=== PATIENT | male | born 1995 | race Caucasian/White ===

== ENCOUNTER 2019-12-15 16:26 | Emergency (ER) | payer MEDICAID ==
[2019-12-15] MEDS ORDERED: Ketorolac 60 MG/2 ML SDV IM ONE (16:57)
[2019-12-15] MEDS ORDERED: Cyclobenzaprine 10 MG Tab PO ONE (16:57)
--- NOTE | 2019-12-15 17:25 | EDM.PDOC ---
ED HPI GENERAL MEDICAL PROBLEM - General Stated Complaint: RT RIB PAIN Time Seen by Provider: 12/15/19 16:35 Source of Information: Reports: Patient History Limitations: Reports: No Limitations - History of Present Illness INITIAL COMMENTS - FREE TEXT/NARRATIVE: Patient presented to the ED because of right rib pain when he woke upthis morning. The pain is shrp,6/10 and worse with breathing and movements. He took OTC tylenol without relief. there is no associated cough and cold,fever or chills.. Right rib Pain Score (Numeric/FACES): 8 - Related Data Allergies Allergy/AdvReac Type Severity Reaction Status Date / Time No Known Allergies Allergy Verified 12/15/19 17:25 Home Meds: Home Meds Cyclobenzaprine [Flexeril] 10 mg PO TID PRN #15 tab 12/15/19 [Rx] Ibuprofen [Motrin] 800 mg PO TID PRN #30 tablet 12/15/19 [Rx] ED ROS GENERAL - Review of Systems Review Of Systems: See Below Constitutional: Reports: No Symptoms HEENT: Reports: No Symptoms Respiratory: Reports: Shortness of Breath, Pleuritic Chest Pain Cardiovascular: Reports: No Symptoms Endocrine: Reports: No Symptoms GI/Abdominal: Reports: No Symptoms : Reports: No Symptoms Musculoskeletal: Reports: Muscle Pain Skin: Reports: No Symptoms Neurological: Reports: No Symptoms Psychiatric: Reports: No Symptoms ED EXAM, GENERAL - Physical Exam Exam: See Below Exam Limited By: No Limitations General Appearance: Alert, WD/WN, No Apparent Distress Nose: Normal Inspection, Normal Mucosa, No Blood Throat/Mouth: Normal Inspection, Normal Lips, Normal Teeth, Normal Gums, Normal Oropharynx Head: Atraumatic, Normocephalic Neck: Normal Inspection, Supple, Non-Tender, Full Range of Motion Respiratory/Chest: No Respiratory Distress, Lungs Clear, Normal Breath Sounds, No Accessory Muscle Use, Other (tenderness over the right rib area) Cardiovascular: Normal Peripheral Pulses, Regular Rate, Rhythm, No Edema, No Gallop, No JVD, No Rub GI/Abdominal: Normal Bowel Sounds, Soft, Non-Tender, No Organomegaly, No Distention, No Abnormal Bruit Back Exam: Normal Inspection, Full Range of Motion Extremities: Normal Inspection, Normal Range of Motion, Non-Tender, No Pedal Edema Neurological: Alert, Oriented, CN II-XII Intact Course - Vital Signs Text/Narrative:: chest and rib xray-neg flexeril 10 mg po x1 toradol 60 mg IM x`1 Last Recorded V/S: Last Vital Signs Temp 36.5 C 12/15/19 17:21 Pulse 85 12/15/19 17:45 Resp 20 12/15/19 17:45 BP 160/91 H 12/15/19 17:45 Pulse Ox 98 12/15/19 17:45 - Orders/Labs/Meds Orders: Active Orders 24 hr Category Date Time Status Ribs 2V w Chest Rt [CR] Stat Exams 12/15/19 16:57 Taken Meds: Medications Discontinued Medications Generic Name Dose Route Start Last Admin Trade Name Freq PRN Reason Stop Dose Admin Cyclobenzaprine HCl 10 mg 12/15/19 16:57 12/15/19 17:37 Flexeril PO 12/15/19 16:58 10 mg ONETIME ONE Administration Ketorolac Tromethamine 60 mg 12/15/19 16:57 12/15/19 17:37 Toradol IM 12/15/19 16:58 60 mg ONETIME ONE Administration Departure - Departure Time of Disposition: 17:20 Disposition: Home, Self-Care 01 Condition: Good Clinical Impression: Chest wall pain - Discharge Information Prescriptions: Cyclobenzaprine [Flexeril] 10 mg PO TID PRN #15 tab PRN Reason: Muscle Spasm Ibuprofen [Motrin] 800 mg PO TID PRN #30 tablet PRN Reason: Pain Instructions: Chest Wall Pain, [id number] Referrals: PCP,None [Primary Care Provider] - Forms: ED Department Discharge Additional Instructions: please read discharge instructions on chest wall pain take ibuprofen 800 mg with tylenol 1000 mg every 8 hours as needed for pain flexeril 10 mg every 8 hours as needed for spasms follow up as needed Sepsis Event Note - Focused Exam Date Exam was Performed: 12/16/19 Time Exam was Performed: 07:31 - My Orders Last 24 Hours: My Active Orders 12/15/19 16:57 Ribs 2V w Chest Rt [CR] Stat - Assessment/Plan Last 24 Hours: My Active Orders 12/15/19 16:57 Ribs 2V w Chest Rt [CR] Stat
--- NOTE | 2019-12-16 10:29 | CR ---
INDICATION: Lifting injury with right rib pain. RIGHT RIBS WITH CHEST: Two PA views of the chest 12/15/19 with an additional 3 views of the right ribs were obtained 12/15/19 - no comparisons. The heart appeared normal in size and shape, mediastinum was unremarkable. An active infiltrate, effusion, contusion, or pneumothorax was not identified. No displaced rib fracture or other definite bony abnormality was identified. There is evidence of exogenous obesity. IMPRESSION: 1. No acute process. 2. Exogenous obesity. MTDD
== END 2019-12-15 17:52 | disposition home or self-care (01) ==
LOC: FB.ED 16:26
DX: R07.89 Other chest pain (principal)
CPT/HCPCS: 71101-RT; 96372; 99283-25; A9270-GY; J1885

== ENCOUNTER 2020-12-22 13:15 | Emergency (ER) | payer MEDICAID ==
--- NOTE | 2020-12-22 13:40 | EDM.PDOC ---
ED HPI GENERAL MEDICAL PROBLEM - General Chief Complaint: Abdominal Pain Stated Complaint: ABD PAIN, right flank Time Seen by Provider: 12/22/20 13:25 Source of Information: Reports: Patient History Limitations: Reports: No Limitations - History of Present Illness INITIAL COMMENTS - FREE TEXT/NARRATIVE: Woke this am ( about noon ) with pain in the right flank .Pain has been per sistent with nausea , no vomiting has had persistent pain , localized non radiating , not relieve by anything States he has had BM yesterday , pain was not related to eating had Urinated yesterday was dark and this was darker has not had gallbladder of the appendix removed has nofever or chills Onset: Today Onset Date: 12/22/20 Duration: Hour(s): (2), Getting Worse Location: Reports: Abdomen Quality: Reports: Ache, Dull Severity: Moderate Improves with: Reports: Immobilization Worsens with: Reports: Movement Associated Symptoms: Reports: Diaphoresis, Loss of Appetite, Malaise Right Lower Abdominal Pain Score (Numeric/FACES): 9 - Related Data Allergies Allergy/AdvReac Type Severity Reaction Status Date / Time No Known Allergies Allergy Verified 12/15/19 17:25 Home Meds: Home Meds Ketorolac [Toradol] 10 mg PO Q6H PRN #15 tab 12/22/20 [Rx] Tamsulosin HCl [Flomax] 0.4 mg PO DAILY #30 cap.er.24h 12/22/20 [Rx] predniSONE 40 mg PO DAILY #5 tab 12/22/20 [Rx] Past Medical History HEENT History: Reports: Impaired Vision Endocrine/Metabolic History: Reports: Obesity/BMI 30+ - Past Surgical History Musculoskeletal Surgical History: Reports: Carpal Tunnel, Other (See Below) Other Musculoskeletal Surgeries/Procedures:: 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 Social & Family History - Caffeine Use Caffeine Use: Reports: Coffee, Soda ED ROS GENERAL - Review of Systems Review Of Systems: See Below Constitutional: Reports: Malaise HEENT: Reports: No Symptoms Respiratory: Reports: No Symptoms Cardiovascular: Reports: No Symptoms Endocrine: Reports: No Symptoms GI/Abdominal: Reports: Abdominal Pain, Anorexia, Decreased Appetite, Distension, Nausea. Denies: Diarrhea, Vomiting : Reports: Hematuria (darkk urine) Musculoskeletal: Reports: No Symptoms Skin: Reports: No Symptoms Neurological: Reports: No Symptoms Psychiatric: Reports: No Symptoms Hematologic/Lymphatic: Reports: No Symptoms Immunologic: Reports: No Symptoms ED EXAM, GI/ABD - Physical Exam Exam: See Below Exam Limited By: No Limitations General Appearance: Alert, WD/WN, No Apparent Distress Eyes: Bilateral: EOMI Ears: Normal External Exam Nose: Normal Inspection Throat/Mouth: Normal Inspection, Normal Oropharynx Head: Atraumatic, Normocephalic Neck: Supple, Non-Tender Respiratory/Chest: No Respiratory Distress, Lungs Clear Cardiovascular: Normal Peripheral Pulses, Regular Rate, Rhythm, No Murmur GI/Abdominal Exam: Soft, Non-Tender Back Exam: Normal Inspection Extremities: Normal Inspection, Normal Range of Motion Neurological: Alert, Oriented, CN II-XII Intact Psychiatric: Normal Affect Skin Exam: Warm, Dry, Intact Course - Vital Signs Last Recorded V/S: Last Vital Signs Temp 36.6 C 12/22/20 13:27 Pulse 76 12/22/20 13:27 Resp 18 12/22/20 13:27 BP 137/84 12/22/20 13:27 Pulse Ox 95 12/22/20 13:27 - Orders/Labs/Meds Orders: Active Orders 24 hr Category Date Time Status Abdomen Pelvis wo Cont [CT] Stat Exams 12/22/20 15:56 Taken Sodium Chloride 0.9% [Normal Saline] 1,000 ml Med 12/22/20 13:45 Active IV ASDIRECTED Sodium Chloride 0.9% [Normal Saline] 1,000 ml Med 12/22/20 15:00 Active IV ASDIRECTED Medication Orders Sodium Chloride (Normal Saline) 1,000 mls @ 999 mls/hr IV ASDIRECTED AMMON Last Admin: 12/22/20 13:45 Dose: 999 mls/hr Documented by: GLENROY Sodium Chloride (Normal Saline) 1,000 mls @ 999 mls/hr IV ASDIRECTED AMMON Last Admin: 12/22/20 14:51 Dose: 999 mls/hr Documented by: RACHAEL Labs: Laboratory Tests 12/22/20 12/22/20 12/22/20 Range/Units 14:05 14:05 14:05 WBC 7.5 (3.2-10.1) x10-3/uL RBC 5.41 (3.90-5.90) x10(6)uL Hgb 14.8 (12.9-17.7) g/dL Hct 44.6 (38.3-50.1) % MCV 82.4 (80.8-98.7) fL MCH 27.4 (27.0-33.3) pg MCHC 33.3 (28.7-35.3) g/dL RDW 14.4 (12.4-15.0) % Plt Count 241 (117-477) x10(3)uL MPV 8.4 (6.7-11.0) fL Neut % (Auto) 51.3 (40.3-71.8) % Lymph % (Auto) 38.6 (15.8-45.3) % [place] % (Auto) 7.1 (5.5-15.2) % Eos % (Auto) 1.2 (0.1-6.8) % Baso % (Auto) 1.8 (0.3-3.8) % Neut # (Auto) 3.9 (1.7-6.9) x10-3/uL Lymph # (Auto) 2.9 (0.5-4.5) x10-3/uL [place] # (Auto) 0.5 (0.0-1.2) x10-3/uL Eos # (Auto) 0.1 (0.0-0.6) x10-3/uL Baso # (Auto) 0.1 (0.0-0.3) x10-3/uL Sodium 141 (135-145) mmol/L Potassium 3.6 (3.5-5.3) mmol/L Chloride 102 (100-110) mmol/L Carbon Dioxide 23 (21-32) mmol/L BUN 11 (7-18) mg/dL Creatinine 1.1 (0.70-1.30) mg/dL Est Cr Clr Drug Dosing 118.32 mL/min Estimated GFR (MDRD) > 60 (>60) BUN/Creatinine Ratio 10.0 (9-20) Glucose 136 H (80-116) mg/dL Calcium 8.6 (8.6-10.2) mg/dL Total Bilirubin 0.3 (0.1-1.3) mg/dL AST 31 H (5-25) IU/L ALT 69 H (12-36) U/L Alkaline Phosphatase 84 (56-112) IU/L C-Reactive Protein 0.8 (0.5-0.9) mg/dL Total Protein 7.6 (6.0-8.0) g/dL Albumin 4.0 (3.5-5.2) g/dL Globulin 3.6 g/dL Albumin/Globulin Ratio 1.1 Urine Color (YELLOW) Urine Appearance (CLEAR) Urine pH (5.0-6.5) Ur Specific [place] (1.010-1.025) Urine Protein (NEGATIVE) mg/dL Urine Glucose (UA) (NORMAL) mg/dL Urine Ketones (NEGATIVE) mg/dL Urine Occult Blood (NEGATIVE) Urine Nitrite (NEGATIVE) Urine Bilirubin (NEGATIVE) Urine Urobilinogen (NEGATIVE) mg/dL Ur Leukocyte Esterase (NEGATIVE) Urine RBC (0-5) Urine WBC (0-5) Ur Squamous Epith Cells (NS,R,O) Urine Bacteria (NS) 12/22/20 Range/Units 15:20 WBC (3.2-10.1) x10-3/uL RBC (3.90-5.90) x10(6)uL Hgb (12.9-17.7) g/dL Hct (38.3-50.1) % MCV (80.8-98.7) fL MCH (27.0-33.3) pg MCHC (28.7-35.3) g/dL RDW (12.4-15.0) % Plt Count (117-477) x10(3)uL MPV (6.7-11.0) fL Neut % (Auto) (40.3-71.8) % Lymph % (Auto) (15.8-45.3) % [place] % (Auto) (5.5-15.2) % Eos % (Auto) (0.1-6.8) % Baso % (Auto) (0.3-3.8) % Neut # (Auto) (1.7-6.9) x10-3/uL Lymph # (Auto) (0.5-4.5) x10-3/uL [place] # (Auto) (0.0-1.2) x10-3/uL Eos # (Auto) (0.0-0.6) x10-3/uL Baso # (Auto) (0.0-0.3) x10-3/uL Sodium (135-145) mmol/L Potassium (3.5-5.3) mmol/L Chloride (100-110) mmol/L Carbon Dioxide (21-32) mmol/L BUN (7-18) mg/dL Creatinine (0.70-1.30) mg/dL Est Cr Clr Drug Dosing mL/min Estimated GFR (MDRD) (>60) BUN/Creatinine Ratio (9-20) Glucose (80-116) mg/dL Calcium (8.6-10.2) mg/dL Total Bilirubin (0.1-1.3) mg/dL AST (5-25) IU/L ALT (12-36) U/L Alkaline Phosphatase (56-112) IU/L C-Reactive Protein (0.5-0.9) mg/dL Total Protein (6.0-8.0) g/dL Albumin (3.5-5.2) g/dL Globulin g/dL Albumin/Globulin Ratio Urine Color Yellow (YELLOW) Urine Appearance Slightly cloudy (CLEAR) Urine pH 7.0 H (5.0-6.5) Ur Specific [place] 1.010 (1.010-1.025) Urine Protein 30 H (NEGATIVE) mg/dL Urine Glucose (UA) Normal (NORMAL) mg/dL Urine Ketones Negative (NEGATIVE) mg/dL Urine Occult Blood Large H (NEGATIVE) Urine Nitrite Negative (NEGATIVE) Urine Bilirubin Negative (NEGATIVE) Urine Urobilinogen Normal (NEGATIVE) mg/dL Ur Leukocyte Esterase Small H (NEGATIVE) Urine RBC 75-100 H (0-5) Urine WBC 0-5 (0-5) Ur Squamous Epith Cells Moderate H (NS,R,O) Urine Bacteria Moderate H (NS) Meds: Medications Generic Name Dose Route Start Last Admin Trade Name Freq PRN Reason Stop Dose Admin Sodium Chloride 1,000 mls @ 999 mls/hr 12/22/20 13:45 12/22/20 13:45 Normal Saline IV 999 mls/hr ASDIRECTED AMMON Administration Sodium Chloride 1,000 mls @ 999 mls/hr 12/22/20 15:00 12/22/20 14:51 Normal Saline IV 999 mls/hr ASDIRECTED AMMON Administration Discontinued Medications Generic Name Dose Route Start Last Admin Trade Name Freq PRN Reason Stop Dose Admin Ketorolac Tromethamine 30 mg 12/22/20 13:41 12/22/20 13:45 Toradol IVPUSH 12/22/20 13:42 30 mg ONETIME ONE Administration Methylprednisolone Sodium Succinate 125 mg 12/22/20 16:45 12/22/20 17:44 Solu-Medrol IVPUSH 12/22/20 16:46 125 mg NOW STA Administration Tamsulosin HCl 0.4 mg 12/22/20 16:31 12/22/20 17:44 Flomax PO 12/22/20 16:32 0.4 mg ONETIME ONE Administration - Re-Assessments/Exams Free Text/Narrative Re-Assessment/Exam: 12/22/20 17:30 pt had ivf and labs drawn Was not able to given urine sample till after he had 1000cc of IVF Ua : hematuria pt was scheduled for CT of the abdomen : stone protocol Was noted to have 4mm renal calculi in the UVJ on the right discussed same with pt Pain has been better controlled discussed need to strain urine and obtain stone for ananlysi Departure - Departure Time of Disposition: 17:48 Disposition: Home, Self-Care 01 Condition: Fair Clinical Impression: Renal calculus, right - Discharge Information *PRESCRIPTION DRUG MONITORING PROGRAM REVIEWED*: Not Applicable *COPY OF PRESCRIPTION DRUG MONITORING REPORT IN PATIENT SHAHID: Not Applicable Prescriptions: Tamsulosin HCl [Flomax] 0.4 mg PO DAILY #30 cap.er.24h predniSONE 40 mg PO DAILY #5 tab Ketorolac [Toradol] 10 mg PO Q6H PRN #15 tab PRN Reason: Pain (Moderate 4-6) Instructions: Low-Purine Eating Plan, Renal Colic, [id number] Referrals: PCP,None [Primary Care Provider] - Forms: ED Department Discharge Additional Instructions: 1) make appointment to follow with your PCP for recheck of your kidney function 2) Strain urine and bring stone in for analysis 3)Increase fluid intake ( 2 liters a dy ) till stone is passed Sepsis Event Note (ED) - Focused Exam Vital Signs: Vital Signs Temp Pulse Resp BP Pulse Ox 12/22/20 13:27 36.6 C 76 18 137/84 95 - My Orders Last 24 Hours: My Active Orders 12/22/20 13:45 Sodium Chloride 0.9% [Normal Saline] 1,000 ml IV ASDIRECTED 12/22/20 15:00 Sodium Chloride 0.9% [Normal Saline] 1,000 ml IV ASDIRECTED 12/22/20 15:56 Abdomen Pelvis wo Cont [CT] Stat - Assessment/Plan Last 24 Hours: My Active Orders 12/22/20 13:45 Sodium Chloride 0.9% [Normal Saline] 1,000 ml IV ASDIRECTED 12/22/20 15:00 Sodium Chloride 0.9% [Normal Saline] 1,000 ml IV ASDIRECTED 12/22/20 15:56 Abdomen Pelvis wo Cont [CT] Stat
[2020-12-22] MEDS: Sodium Chloride 0.9% 1,000 ML IV SCH ×2 (13:45→14:51)
[2020-12-22] MEDS: Ketorolac 30 MG/ML SDV IVPUSH ONE (13:45)
[2020-12-22] MEDS: methylPREDNISolone Sodium Succinate 125 MG/2 ML SDV IVPUSH STA (17:44)
[2020-12-22] MEDS: Tamsulosin 0.4 MG Cap.ER PO ONE (17:44)
--- NOTE | 2020-12-22 17:53 | CT ---
CT ABDOMEN AND PELVIS WITHOUT CONTRAST INDICATION: Hematuria, right flank pain. Spiral 2.5 mm axial sections were obtained through the abdomen and pelvis with sagittal and coronal reconstructions 12/22/2020--no comparisons. Total exam DLP was 3222.55 mGy-cm. The heart appears somewhat generous in size but could be an "athletic" heart and should be correlated clinically in that regard. The low lung benavidez and pleural spaces visualized show no evidence of active infiltrate or effusion. The liver shows evidence of decreased density compatible with a fatty liver. No gallstones were demonstrated. The spleen, pancreas, and adrenal glands appear to be unremarkable. No definite evidence of renal calcinosis was identified. However, there is very minimal pyelocaliectasis and definite ureterectasis on the right with a 4.3 mm calculus at the ureteropelvic junction and fat stranding in that area. Findings may represent a relatively mild degree or intermittent obstructive process now occurring at the ureteropelvic junction due to the 4.3 mm calculus on the right. Additionally the the ureter extending into the lower abdomen is relatively dilated with fat stranding around it strongly suggesting the possibility of a recently passed calculus not visualized at this time in the ureter or the urinary bladder--a passed urinary calculus on the right is likely. Urinary bladder was unremarkable. No organomegaly, mass lesions, or free fluid collections are identified in the abdomen or pelvis. The appendix appears to be normal. No evidence of free air or bowel obstruction was seen. No evidence of hernias was identified. IMPRESSION: 1. Probable intermittent or partial obstruction--obstructive uropathy at the ureteropelvic junction on the right with a 4.3 mm calculus noted. 2. Probable recently passed calculus from the distal right ureter as the ureter is dilated on the right with fat stranding suggesting a more significant obstructive process earlier today. 3. No evidence of renal calcinosis otherwise suggested. 4. Fatty liver. Report was called to Dr. Burrell at 1635 hours, 12/22/2020. [facility] [place]
== END 2020-12-22 17:57 | disposition home or self-care (01) ==
LOC: FB.ED 13:15
DX: N20.0 Calculus of kidney (principal); E66.9 Obesity, unspecified; Z68.41 Body mass index [BMI] 40.0-44.9, adult
CPT/HCPCS: 36415; 74176; 80053; 81001; 85025; 86140; 96374; 96375; 99284; 99284-25; A9270-GY; J1885; J2930; J7030